=== PATIENT | female | born 1965 | race Caucasian/White ===

== ENCOUNTER 2017-09-29 16:57 | Inpatient (IN) | payer OTHER ==
[~2017-09-29] VITALS: Ht 162.6 cm; Wt 142.5 kg
[~2017-09-29 16:57] MED LIST: AMBIEN10 MG PO; ANTIVERT25 MG PO; ASPIRIN EC325 MG PO; BENADRYL25 MG PO; Levaquin PO; MOTRIN800 MG PO; MULTIVITAMIN1 EAC2 PO; NOHOMEMEDS; PERCOCET 5/31 TABLET PO; PHENTERMINE H37.5 MG PO; PROVENTIL,2.5 MG/0.5; PROVENTIL,200 INHALA IH; SYMBICORT60 INHALA1 IH; TYLENOL WITH C1 EACH PO; VALIUM5 MG PO; ZITHROMAX Z-PA250 MG PO; ZOFRAN4 MG PO; predniSONE PO
[2017-09-29 17:41] LABS: HEMATOCRIT 43.1 % (36.0-46.0); HEMOGLOBIN 14.5 G/DL (11.9-15.5); MCH 29.3 PG (29.0-34.0); MCHC 33.6 G/DL (30.0-36.0); MCV 87.1 FL (83-99); PLATELET COUNT 310 K/uL (156-360); RBC DIS.WIDTH-CV 13.1 % (11.8-14.6); RBC DIS.WIDTH-SD 41.5 % (39-53); RED BLOOD COUNT 4.95 M/uL (3.80-5.20); WHITE BLOOD COUNT 10.1 K/uL (4.1-10.2)
[2017-09-29 17:52] LABS: ALBUMIN 4.5 g/dL (3.2-4.8); CHLORIDE 106 mEq/L (99-109); POTASSIUM 4.2 mEq/L (3.7-5.4); SODIUM 141 mEq/L (136-147)
[2017-09-29 17:54] LABS: GLUCOSE 98 mg/dL (70-99); TOTAL PROTEIN 8.2 g/dL (6.4-8.3)
[2017-09-29 17:56] LABS: APPEARANCE CLEAR ((CLEAR)); BILIRUBIN NEGATIVE; BLOOD NEGATIVE; COLOR STRAW ((YELLOW)); GLUCOSE (STRIP) NEGATIVE; KETONES NEGATIVE; LEUKOCYTES NEGATIVE; NITRITE NEGATIVE; PROTEIN (STRIP) NEGATIVE; UCUL ADDED? NO; UROBILINOGEN 0.2 MG/DL (0.2-1.0)
[2017-09-29 17:56] LABS: TOTAL BILIRUBIN 0.5 mg/dL (0.0-1.0)
[2017-09-29 17:58] LABS: ALKALINE PHOSPHATASE 114 IU/L (3-129); CREATININE 0.8 mg/dL (0.6-1.3); GFR ESTIMATE (CALCULATED) > 59 mL/min/
[2017-09-29 17:59] LABS: UREA NITROGEN (BUN) 16 mg/dL (9-23)
[2017-09-29 18:00] LABS: AST (GOT) 18 IU/L (2-34)
[2017-09-29 18:01] LABS: ALT (GPT) 26 IU/L (3-49)
[2017-09-29 18:06] LABS: QUANTITATIVE HCG < 4.0 MIU/ML
[2017-09-29] MEDS ORDERED: PROAIR HFA8.5 GM IH (22:02)
[2017-09-30] VITALS (7 sets, daily range): BP systolic 113–168; BP diastolic 57–79
[2017-09-30 07:01] LABS: BASOPHIL (%) 0.3 % (0-1); EOSINOPHIL (%) 0 % (0-5); HEMATOCRIT 40.4 % (36.0-46.0); HEMOGLOBIN 13.3 G/DL (11.9-15.5); IMMATURE GRANULOCYTE (%) 0.5 % (0.0-0.7); LYMPHOCYTE (%) 11.8 % (15-42); LYMPHOCYTE COUNT 0.7 K/uL (1.0-2.8); MCH 28.7 PG (29.0-34.0); MCHC 32.9 G/DL (30.0-36.0); MCV 87.3 FL (83-99); MONOCYTE (%) 1.4 % (3-12); MONOCYTE COUNT 0.1 K/uL (0-0.8); NEUTROPHIL COUNT 5.4 K/uL (1.8-6.4); PLATELET COUNT 316 K/uL (156-360); RBC DIS.WIDTH-CV 13.2 % (11.8-14.6); RED BLOOD COUNT 4.63 M/uL (3.80-5.20); WHITE BLOOD COUNT 6.3 K/uL (4.1-10.2)
[2017-09-30 07:21] LABS: ALBUMIN 3.7 G/DL (3.2-4.8); ALKALINE PHOSPHATASE 92 IU/L (3-129); ALT (GPT) 20 IU/L (3-49); AST (GOT) 14 IU/L (2-34); CHLORIDE 108 MEQ/L (99-109); CREATININE 0.5 MG/DL (0.6-1.3); GFR ESTIMATE (CALCULATED) > 59 mL/min/; GLUCOSE 133 mg/dL (70-99); POTASSIUM 4.4 MEQ/L (3.7-5.4); SODIUM 140 MEQ/L (136-147); TOTAL BILIRUBIN 0.4 MG/DL (0.0-1.0); TOTAL PROTEIN 6.4 G/DL (6.4-8.3); UREA NITROGEN (BUN) 11 mg/dL (9-23)
[2017-10-01 03:29] VITALS: BP 148/70
[2017-10-01 07:11] LABS: CHLORIDE 107 MEQ/L (99-109); CREATININE 0.6 MG/DL (0.6-1.3); GFR ESTIMATE (CALCULATED) > 59 mL/min/; GLUCOSE 120 mg/dL (70-99); SODIUM 140 MEQ/L (136-147); UREA NITROGEN (BUN) 10 mg/dL (9-23)
[2017-10-01 08:19] VITALS: BP 134/71
[2017-10-01 11:39] VITALS: BP 150/77
== END 2017-10-01 14:07 | disposition home or self-care (01) | DRG 389 ==
LOC: EME 16:57 → EDOF 23:09 → 2EAST 23:09 → ENRESERV 23:11 → EDOF 09-30 00:56 → 2EAST 09-30 00:59
PROVIDERS: Hospitalist; Physician Assistant
PROC: 5A09357 Assistance with Respiratory Ventilation, Less than 24 Consecutive Hours, Continuous Positive Airway Pressure (ICD-10-PCS; principal; 2017-09-29)
DX: K56.600 Partial intestinal obstruction, unspecified as to cause (principal); Z68.43 Body mass index [BMI] 50.0-59.9, adult; K56.7 Ileus, unspecified; R10.0 Acute abdomen; E66.01 Morbid (severe) obesity due to excess calories; E86.0 Dehydration; G47.33 Obstructive sleep apnea (adult) (pediatric); J45.909 Unspecified asthma, uncomplicated; K21.9 Gastro-esophageal reflux disease without esophagitis; K66.0 Peritoneal adhesions (postprocedural) (postinfection); M19.90 Unspecified osteoarthritis, unspecified site; Z90.49 Acquired absence of other specified parts of digestive tract; Z90.710 Acquired absence of both cervix and uterus; Z88.5 Allergy status to narcotic agent; Z91.041 Radiographic dye allergy status; Z79.51 Long term (current) use of inhaled steroids; Z82.3 Family history of stroke; Z82.49 Family history of ischemic heart disease and other diseases of the circulatory system; Z83.3 Family history of diabetes mellitus
CPT/HCPCS: 74018; 74019; 74177; 80048; 80053; 81003; 84702; 85025; 85027; 93005; 94660; 99281; 99285; J1200; J1644; J1885; J2405; J2765; J7030; J7040; J7512

== ENCOUNTER → 2017-10-22 | Outpatient (CLI) | payer OTHER ==
[~2017-10-22] VITALS: Ht 160 cm; Wt 145.0 kg
[~2017-10-22] MED LIST changes: +ERGOCALCIF50000 UNIT PO; +PROAIR HFA8.5 GM IH
== END | disposition home or self-care (01) ==
LOC: AMB 06:54
PROC: 0DB68ZX Excision of Stomach, Via Natural or Artificial Opening Endoscopic, Diagnostic (ICD-10-PCS; principal; 2017-10-22)
DX: K29.60 Other gastritis without bleeding (principal); F41.9 Anxiety disorder, unspecified; J45.909 Unspecified asthma, uncomplicated; E66.9 Obesity, unspecified; Z68.43 Body mass index [BMI] 50.0-59.9, adult; Z88.5 Allergy status to narcotic agent; Z91.041 Radiographic dye allergy status
CPT/HCPCS: 88305; 88342 TC; J1100; J2405